=== PATIENT | female | born 1985 | race Caucasian/White ===

== ENCOUNTER 2016-09-04 11:20 | Emergency (ER) | payer MEDICARE, OTHER ==
[2016-09-04 11:20] VITALS: BMI 30.4
[2016-09-04 11:24] VITALS: BP 124/91; PULSE 93; RESP 20; TEMP 97.7; O2SAT 99
[2016-09-04] MEDS ORDERED: Sodium Chloride 0.9% 1,000 ML IV STA (11:50)
--- NOTE | 2016-09-04 11:55 | ED PDOC ---
HPI: Abdomen Time Seen by Provider: 09/04/16 11:35 Chief Complaint (Nursing): Female Genitourinary History Per: Patient History/Exam Limitations: no limitations Onset/Duration Of Symptoms: Days Current Symptoms Are (Timing): Still Present Severity: Moderate Additional Complaint(s): 30-year-old female, presents to the emergency department with complaints of abdominal pain. Patient states she has been experiencing epigastric abdominal pain that radiates to right abdomen, for the past 2.5 months. Pain is intermittent in nature, associated with vaginal bleeding, that is also going on x2.5 months. Patient states her symptoms returned after she had a drink with her friends last night, followed by an episode of non-bilious/non-bloody vomiting after one drink. States she was seen by her OBGYN last week who told her "everything is okay." Patient denies numbness/weakness, back pain, dizziness , chills, or any other associated symptoms. No other complaints at this time. PMD Emmett Locke MD. OBGYN Yang Alanis MD. Past Medical History Reviewed: Historical Data, Nursing Documentation, Vital Signs Vital Signs: Last Vital Signs Temp 97.7 F 09/04/16 11:22 Pulse 93 H 09/04/16 11:22 Resp 20 09/04/16 11:22 BP 124/91 H 09/04/16 11:22 Pulse Ox 99 09/04/16 12:06 - Medical History PMH: Anxiety, Cardia Arrhythmia - Surgical History Surgical History: - Family History Family History: States: Unknown Family Hx - Home Medications Home Medications: Ambulatory Orders Medication Instructions Recorded Vit#96/Ferrous Fum/FA 1 tab PO DAILY 02/13/15 [ Tablet] Ibuprofen [Motrin Tab] 600 mg PO Q4H PRN #0 tab 02/17/15 Ibuprofen [Motrin] 600 mg PO Q6H PRN #10 tab 10/26/15 Naproxen 500 mg PO BID #30 tab 02/08/16 Azithromycin [Zithromax] 250 mg PO DAILY 5 Days 03/26/16 Ibuprofen [Motrin] 600 mg PO TID 7 Days 03/26/16 - Allergies Allergies/Adverse Reactions: Allergies Allergy/AdvReac Type Severity Reaction Status Date / Time Penicillins Allergy RASH Verified 09/04/16 11:21 BEEF Allergy Severe SWELLING Uncoded 02/13/15 08:21 Review of Systems ROS Statement: Except As Marked, All Systems Reviewed And Found Negative Constitutional: Negative for: Fever, Chills Cardiovascular: Negative for: Chest Pain, Palpitations Respiratory: Negative for: Cough, Shortness of Breath Gastrointestinal: Positive for: Vomiting, Abdominal Pain Genitourinary Female: Positive for: Vaginal Bleeding Skin: Negative for: Rash Neurological: Negative for: Weakness, Numbness, Headache, Dizziness Physical Exam - Reviewed Nursing Documentation Reviewed: Yes Vital Signs Reviewed: Yes - Physical Exam Appears: Positive for: Non-toxic, No Acute Distress Head Exam: Positive for: ATRAUMATIC, NORMOCEPHALIC Skin: Positive for: Warm, Dry. Negative for: Rash Eye Exam: Positive for: Normal appearance Neck: Positive for: Painless ROM Cardiovascular/Chest: Positive for: Regular Rate, Rhythm Respiratory: Positive for: Normal Breath Sounds. Negative for: Accessory Muscle Use Gastrointestinal/Abdominal: Positive for: Soft, Tenderness (Epigastric, Mild). Negative for: Guarding, Rebound Extremity: Positive for: Normal ROM Neurologic/Psych: Positive for: Alert, Oriented - Laboratory Results Result Diagrams: 09/04/16 12:16 09/04/16 12:16 Interpretation Of Abn Labs: no acute - ECG ECG: Positive for: Interpreted By Me, Viewed By Me ECG Rhythm: Positive for: Normal QRS, Normal ST Segment, Sinus Rhythm O2 Sat by Pulse Oximetry: 99 Pulse Ox Interpretation: Normal - Progress ED Course And Treament: 1344: Stable. AAOx3. Pain free. Tolerated PO. Fu with pcp. Medical Decision Making Medical Decision Making: Prior Visits: Notes and records from previous visits were reviewed. Patient had abdominal CT scan on 10/26/15 that showed: Bilateral adnexal cysts. No significant or acute findings to account for/ related to the clinical presentation. No significant interval change compared to the prior examination(s). She had a pelvic US on 02/02 that was normal Plan: * EKG * CMP, Lipase * CBC * IVF, Pepcid * Urinalysis * Reassess and Disposition Scribe Attestation: Documented by Jennifer Castellano acting as a scribe for Braxton Chan MD. Provider Attestation: All medical record entries made by the Scribe were at my direction and personally dictated by me. I have reviewed the chart and agree that the record accurately reflects my personal performance of the history, physical exam, medical decision making, and the department course for this patient. I have also personally directed, reviewed, and agree with the discharge instructions and disposition. Disposition - Clinical Impression Clinical Impression: Abdominal pain - Patient ED Disposition Is Patient to be Admitted: No Counseled Patient/Family Regarding: Studies Performed, Diagnosis, Need For Followup - Disposition Referrals: Emmett Locke MD [Primary Care Provider] - 09/06/16 Disposition: Routine/Home Disposition Time: 13:45 Condition: STABLE Additional Instructions: Return if not better in 3 days. Instructions: Abdominal Pain (ED)
--- NOTE | 2016-09-04 12:13 | RAD ---
HISTORY: epigastric pain COMPARISON: 03/26/2016 TECHNIQUE: Chest PA and lateral FINDINGS: LUNGS: No active pulmonary disease. PLEURA: No significant pleural effusion identified. No pneumothorax apparent. CARDIOVASCULAR: Normal. OSSEOUS STRUCTURES: No significant abnormalities. VISUALIZED UPPER ABDOMEN: Normal. OTHER FINDINGS: None. IMPRESSION: No active disease.
[2016-09-04 12:26] LABS: BASO % 0.3 % (0.0-2.0); EOS # 0.1 K/uL (0.0-0.7); EOS % 1.1 % (0.0-4.0); HEMATOCRIT 43.7 % (34.0-47.0); LYMPH # 1.7 K/uL (1.0-4.3); LYMPH % 19.2 % (20.0-40.0); MEAN CELL VOLUME 91.5 fl (81.0-99.0); MEAN CORPUSCULAR HEMOGLOBIN 30.9 pg (27.0-31.0); MEAN CORPUSCULAR HGB CONC 33.7 g/dL (33.0-37.0); MEAN PLATELET VOLUME 10.2 fl (7.2-11.7); MONO # 0.5 K/uL (0.0-0.8); MONO % 5.4 % (0.0-10.0); NEUT # 6.6 K/uL (1.8-7.0); RED CELL DISTRIBUTION WIDTH 14.1 % (11.5-14.5)
[2016-09-04 12:40] LABS: ALB/GLOB RATIO 1.3 (1.0-2.1); ALKALINE PHOSPHATASE 99 U/L (38-126); ALT/SGPT 44 U/L (9-52); AST/SGOT 21 U/L (14-36); BILIRUBIN,TOTAL 0.3 mg/dl (0.2-1.3); BLOOD UREA NITROGEN 9 mg/dl (7-17); CALCIUM 9.4 mg/dL (8.4-10.2); CARBON DIOXIDE 24 mmol/L (22-30); CHLORIDE 106 mmol/L (98-107); GFR AFRICAN-AMERICAN > 60; GLUCOSE,RANDOM 102 mg/dL (65-105); LIPASE 38 U/L (23-300); SODIUM 140 mmol/l (132-148); TOTAL PROTEIN 7.4 G/DL (6.3-8.2)
--- NOTE | 2016-09-06 09:47 | CARD ---
APPROVED REPORT EKG Measurement Heart [id number] <Conclusion> Normal sinus rhythm with sinus arrhythmia Normal ECG
== END 2016-09-04 13:55 | disposition home or self-care (01) ==
LOC: H.ER 11:20
DX: R10.13 Epigastric pain (principal); Z88.0 Allergy status to penicillin; F41.9 Anxiety disorder, unspecified
CPT/HCPCS: 71020; 80053; 81025; 83690; 85025; 93005; 96374; 99285; J2270; J7040

== ENCOUNTER 2016-10-30 16:32 | Emergency (ER) | payer MEDICARE, OTHER ==
[2016-10-30 16:32] VITALS: BMI 30.4
[2016-10-30 16:41] VITALS: O2SAT 100
--- NOTE | 2016-10-30 17:24 | ED PDOC ---
HPI: Chest Pain Time Seen by Provider: 10/30/16 16:45 Chief Complaint (Nursing): Chest Pain Chief Complaint (Provider): Chest Pain History Per: Patient History/Exam Limitations: no limitations Onset/Duration Of Symptoms: Days (4 days) Current Symptoms Are (Timing): Constant Severity: Moderate Quality: Tightness Associated Symptoms: Nausea, Dyspnea, Other (left forearm pain, inclusive of generalized numbness and tingling sensations, vomiting, diarrhea, and a cough; denies a fever or abdominal pain) Exacerbating Factors: Deep Breathing Additional Complaint(s): Snehal Kenny is a 30 year old female, with a past medical history of cardiac arrhythmia, who presents to the emergency department for the evaluation of chest pain, radiating to her left forearm, inclusive of generalized numbness and tingling sensations, that the patient has been experiencing for the past 4 days. Pain is described as a constant tightness, localized to the patient's anterior chest wall. Chest pain is reportedly exacerbated with a deep breath. No medications were taken prior to arrival to help alleviate her pain. Associated nausea, 2 episodes of vomiting (earlier today), diarrhea, shortness of breath, and a dry cough (lasting for approximately the past 2 years) are currently present. Denies a fever or abdominal pain. PMD: Emmett Locke Past Medical History Reviewed: Historical Data, Nursing Documentation, Vital Signs Vital Signs: Last Vital Signs Temp 98.3 F 10/30/16 16:37 Pulse 94 H 10/30/16 18:21 Resp 18 10/30/16 16:37 BP 132/66 10/30/16 16:37 Pulse Ox 100 10/30/16 18:21 - Medical History PMH: Anxiety, Cardia Arrhythmia Other PMH: Colitis - Surgical History Surgical History: (x1) Other surgeries: Tubal Ligation, Colonoscopy - Family History Family History: States: No Known Family Hx - Social History Current smoker - smoking cessation education provided: Yes Alcohol: Occasional Drugs: Denies - Home Medications Home Medications: Ambulatory Orders Medication Instructions Recorded Vit#96/Ferrous Fum/FA 1 tab PO DAILY 02/13/15 [ Tablet] Ibuprofen [Motrin Tab] 600 mg PO Q4H PRN #0 tab 02/17/15 Ibuprofen [Motrin] 600 mg PO Q6H PRN #10 tab 10/26/15 Naproxen 500 mg PO BID #30 tab 02/08/16 Azithromycin [Zithromax] 250 mg PO DAILY 5 Days 03/26/16 Ibuprofen [Motrin] 600 mg PO TID 7 Days 03/26/16 - Allergies Allergies/Adverse Reactions: Allergies Allergy/AdvReac Type Severity Reaction Status Date / Time Penicillins Allergy RASH Verified 09/04/16 11:21 BEEF Allergy Severe SWELLING Uncoded 02/13/15 08:21 Review of Systems ROS Statement: Except As Marked, All Systems Reviewed And Found Negative Constitutional: Negative for: Fever Cardiovascular: Positive for: Chest Pain Respiratory: Positive for: Cough, Shortness of Breath, Pleuritic Pain Gastrointestinal: Positive for: Nausea, Vomiting, Diarrhea. Negative for: Abdominal Pain Musculoskeletal: Positive for: Arm Pain (L) Neurological: Positive for: Numbness (L arm), Other (tingling to L arm) Physical Exam - Reviewed Nursing Documentation Reviewed: Yes Vital Signs Reviewed: Yes - Physical Exam Appears: Positive for: Well, Non-toxic, No Acute Distress Head Exam: Positive for: ATRAUMATIC, NORMOCEPHALIC Skin: Positive for: Normal Color, Warm, Dry Cardiovascular/Chest: Positive for: Regular Rate, Rhythm. Negative for: Chest Non Tender (chest wall tenderness), Murmur Respiratory: Positive for: Normal Breath Sounds. Negative for: Respiratory Distress Gastrointestinal/Abdominal: Positive for: Normal Exam, Soft. Negative for: Tenderness Extremity: Positive for: Normal ROM. Negative for: Tenderness, Swelling Neurologic/Psych: Positive for: Alert, Oriented - Laboratory Results Result Diagrams: 10/30/16 17:33 10/30/16 17:33 - ECG ECG Rhythm: Positive for: Normal QRS, Normal ST Segment, Sinus Rhythm. Negative for: ST/T Changes Rate: 94 O2 Sat by Pulse Oximetry: 100 (RA) Pulse Ox Interpretation: Normal - Radiology X-Ray: Interpreted by Me, Viewed By Me X-Ray Interpretation: No Acute Disease Medical Decision Making Medical Decision Makin:45 Initial Impression: Chest pain and cough Differential Diagnoses include, but are not limited to acute/chronic bronchitis , ACS, otherwise pneumonia. Initial Plan: * Chest X-Ray * EKG * CBC * BMP * Troponin I * Urine * Toradol 30 mg IM * Reevaluation 17:23 EKG read at a rate of 94 with a Normal Sinus Rhythm, Normal QRS, and No ST/T Changes. Scribe Attestation: Documented by Jhonny Martinez, acting as a scribe for Lauro Miller MD. Provider Scribe Attestation: All medical record entries made by the Scribe were at my direction and personally dictated by me. I have reviewed the chart and agree that the record accurately reflects my personal performance of the history, physical exam, medical decision making, and the department course for this patient. I have also personally directed, reviewed, and agree with the discharge instructions and disposition. Disposition - Clinical Impression Clinical Impression: Chest pain - Patient ED Disposition Is Patient to be Admitted: No Doctor Will See Patient In The: Office Counseled Patient/Family Regarding: Studies Performed, Diagnosis, Need For Followup - Disposition Referrals: [facility] [Outside] Disposition: Routine/Home Disposition Time: 18:21 Condition: GOOD Additional Instructions: Return for worsening. Take motrin for pain. Follow up with your PCP in 2-3 days. Instructions: Chest Pain (ED)
[2016-10-30 17:38] LABS: BASO % 0.3 % (0.0-2.0); EOS # 0.1 K/uL (0.0-0.7); EOS % 0.6 % (0.0-4.0); LYMPH # 2.9 K/uL (1.0-4.3); LYMPH % 26.5 % (20.0-40.0); MEAN CELL VOLUME 89.6 fl (81.0-99.0); MEAN CORPUSCULAR HGB CONC 33.5 g/dL (33.0-37.0); MEAN PLATELET VOLUME 10.7 fl (7.2-11.7); MONO # 0.7 K/uL (0.0-0.8); MONO % 6.5 % (0.0-10.0); NEUT # 7.3 K/uL (1.8-7.0); NEUT % 66.1 % (50.0-75.0); RED CELL DISTRIBUTION WIDTH 14.2 % (11.5-14.5); WHITE BLOOD COUNT 11.1 K/uL (4.8-10.8)
[2016-10-30 17:51] LABS: BLOOD UREA NITROGEN 9 mg/dl (7-17); CALCIUM 9.3 mg/dL (8.4-10.2); CARBON DIOXIDE 18 mmol/L (22-30); CHLORIDE 109 mmol/L (98-107); GFR AFRICAN-AMERICAN > 60; GLUCOSE,RANDOM 86 mg/dL (65-105); SODIUM 138 mmol/l (132-148)
[2016-10-30 18:36] VITALS: BP 134/69; PULSE 86; RESP 16; TEMP 98
--- NOTE | 2016-10-31 08:21 | RAD ---
HISTORY: chest pain COMPARISON: No prior. TECHNIQUE: Chest PA and lateral FINDINGS: LUNGS: No active pulmonary disease. PLEURA: No significant pleural effusion identified. No pneumothorax apparent. CARDIOVASCULAR: Normal. OSSEOUS STRUCTURES: No significant abnormalities. VISUALIZED UPPER ABDOMEN: Normal. OTHER FINDINGS: None. IMPRESSION: No active disease.
--- NOTE | 2016-11-01 08:56 | CARD ---
APPROVED REPORT EKG Measurement Heart [id number] <Conclusion> Normal sinus rhythm Normal ECG
== END 2016-10-30 18:36 | disposition home or self-care (01) ==
LOC: H.ER 16:32
DX: R07.9 Chest pain, unspecified (principal); F41.9 Anxiety disorder, unspecified; F17.200 Nicotine dependence, unspecified, uncomplicated; Z88.0 Allergy status to penicillin; R19.7 Diarrhea, unspecified
CPT/HCPCS: 71020; 80048; 81025; 84484; 85025; 93005; 96372; 99282; J1885

== ENCOUNTER 2017-01-24 17:14 | Emergency (ER) | payer MEDICARE, OTHER ==
[2017-01-24 17:14] VITALS: BMI 30.4
[2017-01-24 17:27] VITALS: BP 122/75; PULSE 108; RESP 16; TEMP 98.6; O2SAT 98
[2017-01-24 18:37] LABS: SQUAMOUS EPITHIAL 12 /hpf (0-5); URINE BILIRUBIN NEGATIVE (NEGATIVE); URINE BLOOD LARGE (NEGATIVE); URINE CALCIUM OXALATE CRYSTALS FEW /hpf (<OCC); URINE CLARITY CLOUDY (Clear); URINE COLOR AMBER (YELLOW); URINE GLUCOSE (UA) NEG (Normal); URINE LEUKOCYTE ESTERASE NEG Leu/uL (Negative); URINE NITRATE NEGATIVE (NEGATIVE); URINE PROTEIN 100 mg/dL (NEGATIVE); URINE UROBILINOGEN 0.2-1.0 mg/dL (0.2-1.0)
[2017-01-24] MEDS ORDERED: Sodium Chloride 0.9% 1,000 ML IV STA (19:05)
--- NOTE | 2017-01-24 19:08 | ED PDOC ---
HPI: Abdomen Time Seen by Provider: 01/24/17 17:40 Chief Complaint (Nursing): Abdominal Pain Chief Complaint (Provider): abdominal pain History Per: Patient History/Exam Limitations: no limitations Additional Complaint(s): 31yo F in ED for eval of back pain and pelvic cramping with vaginal bleeding . pt admits vaginal bleeding and pelvic cramping is ongoing. Pt has been seen by Danilo and has been told she has adenexal cysts causing her pelvic cramping and required watchful waiting. Pt now in Ed with severe pain untolerable without nausea vomiting fever or chills. Past Medical History Reviewed: Historical Data, Nursing Documentation, Vital Signs Vital Signs: Last Vital Signs Temp 98.6 F 01/24/17 17:23 Pulse 108 H 01/24/17 17:23 Resp 16 01/24/17 17:23 BP 122/75 01/24/17 17:23 Pulse Ox 98 01/24/17 19:16 - Medical History PMH: Anxiety, Cardia Arrhythmia - Surgical History Surgical History: (x1) - Family History Family History: States: Unknown Family Hx - Home Medications Home Medications: Ambulatory Orders Medication Instructions Recorded Cyclobenzaprine HCl [Flexeril] 10 mg PO TID PRN #15 tab 04/02/14 RX: Vit#96/Ferrous Fum/FA 1 tab PO DAILY 02/13/15 [ Tablet] RX: Ibuprofen [Motrin Tab] 600 mg PO Q4H PRN #0 tab 02/17/15 Ibuprofen [Motrin] 600 mg PO Q6H PRN #10 tab 10/26/15 RX: Naproxen 500 mg PO BID #30 tab 02/08/16 Azithromycin [Zithromax] 250 mg PO DAILY 5 Days 03/26/16 Ibuprofen [Motrin] 600 mg PO TID 7 Days 03/26/16 - Allergies Allergies/Adverse Reactions: Allergies Allergy/AdvReac Type Severity Reaction Status Date / Time Penicillins Allergy RASH Verified 09/04/16 11:21 BEEF Allergy Severe SWELLING Uncoded 02/13/15 08:21 Review of Systems ROS Statement: Except As Marked, All Systems Reviewed And Found Negative Gastrointestinal: Positive for: Abdominal Pain. Negative for: Nausea, Vomiting Genitourinary Female: Positive for: Pelvic Pain Musculoskeletal: Positive for: Back Pain Physical Exam - Reviewed Nursing Documentation Reviewed: Yes Vital Signs Reviewed: Yes - Physical Exam Appears: Positive for: Non-toxic, No Acute Distress, Uncomfortable Head Exam: Positive for: ATRAUMATIC, NORMAL INSPECTION, NORMOCEPHALIC Skin: Positive for: Normal Color, Warm Cardiovascular/Chest: Positive for: Regular Rate, Rhythm Respiratory: Positive for: CNT, Normal Breath Sounds Gastrointestinal/Abdominal: Positive for: Normal Exam, Bowel Sounds, Tenderness (pelvic tenderness b/l) Back: Positive for: R CVA Tenderness (severe) Extremity: Positive for: Normal ROM Neurologic/Psych: Positive for: Alert, Oriented - Laboratory Results Result Diagrams: 01/24/17 19:21 01/24/17 19:21 - ECG O2 Sat by Pulse Oximetry: 98 - Progress ED Course And Treament: ct scan due to hematuira r/o renal stone labs and NS fluids, zofran and tordol. K+ low gave [id number]. Disposition - Clinical Impression Clinical Impression: Abdominal cramps - Patient ED Disposition Is Patient to be Admitted: Transfer of Care - Disposition Disposition Time: 19:58 Condition: STABLE Forms: [employer] (French) Patient Signed Over To: Vane Coles (pending CT scan)
[2017-01-24 19:36] LABS: BASO % 0.2 % (0.0-2.0); EOS # 0.1 K/uL (0.0-0.7); HEMOGLOBIN 12.5 g/dL (12.0-16.0); LYMPH # 2.5 K/uL (1.0-4.3); LYMPH % 29.2 % (20.0-40.0); MEAN CELL VOLUME 89.8 fl (81.0-99.0); MEAN CORPUSCULAR HEMOGLOBIN 29.8 pg (27.0-31.0); MEAN CORPUSCULAR HGB CONC 33.2 g/dL (33.0-37.0); MEAN PLATELET VOLUME 9.9 fl (7.2-11.7); MONO # 0.5 K/uL (0.0-0.8); NEUT # 5.4 K/uL (1.8-7.0); NEUT % 63.6 % (50.0-75.0); RBC 4.17 Mil/uL (3.80-5.20); RED CELL DISTRIBUTION WIDTH 15.5 % (11.5-14.5); WHITE BLOOD COUNT 8.4 K/uL (4.8-10.8)
[2017-01-24 19:41] LABS: BLOOD UREA NITROGEN 11 mg/dl (7-17); CALCIUM 8.6 mg/dL (8.4-10.2); GFR AFRICAN-AMERICAN > 60; GFR NON-AFRICAN AMERICAN > 60
[2017-01-24] MEDS ORDERED: Potassium Chloride 10 mEq ER Tab PO ONE ×2 (19:57→20:03)
--- NOTE | 2017-01-24 20:13 | ED PDOC ---
- Laboratory Results Result Diagrams: 01/24/17 19:21 01/24/17 19:21 - ECG O2 Sat by Pulse Oximetry: 98 - Progress ED Course And Treament: Case endorsed to sba underwriter from [facility]ira ALICIA pending CT EXAM: CT Abdomen and Pelvis Without Intravenous Contrast CLINICAL HISTORY: 31 years old, female; Pain; Abdominal pain; Prior surgery; Surgery date: 6+ months; Surgery type: Tubal ligation. 1 c/section; Additional info: Right CVA tenderness. Back pain, pelvic cramping. Sent phy. Doc TECHNIQUE: Axial computed tomography images of the abdomen and pelvis without intravenous contrast. This CT exam was performed using one or more of the following dose reduction techniques: automated exposure control, adjustment of the mA and/or kV according to patient size, and/ or use of iterative reconstruction technique. Coronal and sagittal reformatted images were created and reviewed. EXAM DATE/TIME: 01/24/2017 7:05 PM COMPARISON: CT - ABD PELVIS PO IV CONTRAST 10/26/2015 5:40:19 PM FINDINGS: Lower thorax: Heart size is normal. Lung bases are clear There is a small hiatal hernia. ABDOMEN: Liver: There is fatty infiltration of the liver. Liver appears mildly enlarged. Gallbladder and bile ducts: unremarkable Pancreas: unremarkable Spleen: Spleen is unremarkable. There is a tiny splenule in the left upper quadrant. Adrenals: unremarkable Kidneys and ureters: There is a left renal cyst. Kidneys and ureters are otherwise unremarkable. There are no renal or ureteral stones. Stomach and bowel: Stomach is partially distended with air-fluid levels. Rotation is normal. There are mildly dilated small bowel loops in the left flank. There are scattered air- fluid levels. Distention decreases distally. Terminal ileum is unremarkable. Appendix is unremarkable.Colon is incompletely distended which limits evaluation. Appendix: See above PELVIS: Bladder: Urinary bladder is unremarkable. Reproductive: Uterus is unremarkable. There is prominence of the adnexa with dominant follicles/cysts. ABDOMEN and PELVIS: Intraperitoneal space: There is no free air or free fluid. Bones/joints: There are no acute osseous abnormalities Soft tissues: unremarkable Vasculature: There are calcified phleboliths. Vascular structures are unremarkable. Lymph nodes: There are multiple small shotty para-aortic nodes. IMPRESSION: No renal or ureteral stones or hydronephrosis; dilated mid small bowel with air-fluid levels, ileus versus early obstruction; prominence of both adnexa with bilateral dominant follicles/cysts Additional findings as described above. Thank you for allowing us to participate in the care of your patient. On re-eval, patient states pain same pain she has been having x 2 years, always on right side. Last BM this morning, tolerating PO. Case discussed with Dr. Osborn, patient's Director Of Psychiatry; recommends doing an u/s and if normal can follow up in office. EXAM: US Pelvis Complete, Transabdominal CLINICAL HISTORY: 31 years old, female; Pain and signs and symptoms; Menstruation abnormalities; Irregular menstruation; Pelvic pain; Additional info: Pelvic pain, vaginal bleeding TECHNIQUE: Real-time transabdominal pelvic ultrasound (complete) with image documentation. EXAM DATE/TIME: 01/24/2017 8:31 PM COMPARISON: CT - ABD PELVIS W/O PO OR 01/24/2017 7:31:30 PM FINDINGS: Uterus: Uterus measures approximately 11 x 5 x 5.5 cm. Endometrium measures approximately 9 mm in width. Right ovary: Right ovary measures approximately 3.2 x 2.1 x 2.9 cm. There is a dominant follicle.There is expected blood flow on Doppler imaging Left ovary: Left ovary measures approximately 3 0.2 x 2.9 x 3 cm. There is a complex dominant follicle/cyst in the left ovary.There is expected blood flow on Doppler imaging Free fluid: There is no free fluid. IMPRESSION: Normal pelvic ultrasound Patient educated on findings, discharged with rx Naproxen. Advised follow up Dr. Osborn. Return to ED for worsening/concerning symptoms. Disposition - Clinical Impression Clinical Impression: Vaginal bleeding, abnormal, Ovarian cyst, Abdominal cramps - POA Present On Arrival: None - Disposition Disposition: Routine/Home Disposition Time: 23:04 Condition: IMPROVED Additional Instructions: Follow up with Director Of Psychiatry in 2-3 days. Take medication as directed, as needed. Return to ED for worsening/concerning symptoms. Prescriptions: Naproxen [Naprosyn] 500 mg PO Q12 PRN #20 tablet PRN Reason: Pain, Moderate (4-7) Instructions: Ovarian Cyst (ED), Dysfunctional Uterine Bleeding (ED)
--- NOTE | 2017-01-24 23:00 | US ---
EXAM: US Pelvis Complete, Transabdominal CLINICAL HISTORY: 31 years old, female; Pain and signs and symptoms; Menstruation abnormalities; Irregular menstruation; Pelvic pain; Additional info: Pelvic pain, vaginal bleeding TECHNIQUE: Real-time transabdominal pelvic ultrasound (complete) with image documentation. EXAM DATE/TIME: 01/24/2017 8:31 PM COMPARISON: CT - ABD PELVIS W/O PO OR 01/24/2017 7:31:30 PM FINDINGS: Uterus: Uterus measures approximately 11 x 5 x 5.5 cm. Endometrium measures approximately 9 mm in width. Right ovary: Right ovary measures approximately 3.2 x 2.1 x 2.9 cm. There is a dominant follicle.There is expected blood flow on Doppler imaging Left ovary: Left ovary measures approximately 3 0.2 x 2.9 x 3 cm. There is a complex dominant follicle/cyst in the left ovary.There is expected blood flow on Doppler imaging Free fluid: There is no free fluid. IMPRESSION: Normal pelvic ultrasound
== END 2017-01-24 23:20 | disposition home or self-care (01) ==
LOC: H.ER 17:14
DX: N83.209 Unspecified ovarian cyst, unspecified side (principal); F41.9 Anxiety disorder, unspecified; Z88.0 Allergy status to penicillin; R10.2 Pelvic and perineal pain
CPT/HCPCS: 74176; 76856; 80048; 81003; 81025; 85025; 96374; 99283; J1885; J7040

== ENCOUNTER 2017-03-04 06:18 | Day surgery (SDC) | payer MEDICARE ==
[2017-03-04 06:50] VITALS: RESP 18
[2017-03-04 07:02] VITALS: BMI 30.4
[2017-03-04] MEDS ORDERED: Propofol 10 mg/ml Inj (20 ML) ONE (07:06)
[2017-03-04] MEDS ORDERED: Phenylephrine 10 mg/ml Inj ONE (07:06)
[2017-03-04] MEDS ORDERED: Lidocaine 2% MPF (5 ml) Inj ONE (07:06)
[2017-03-04] MEDS ORDERED: ePHEDrine 50 mg/ml Inj ONE (07:06)
[2017-03-04] MEDS ORDERED: Succinylcholine 200 mg/10 ml Inj IV ONE (07:06)
[2017-03-04] MEDS ORDERED: Rocuronium 10 mg/ml (5 ml) ONE (07:06)
[2017-03-04] MEDS ORDERED: Sevoflurane - Inhalation Anesthetic Liq (250 ml) ONE (07:15)
[2017-03-04] MEDS ORDERED: Midazolam 2 MG/2 ML VIAL ONE (07:34)
[2017-03-04] MEDS ORDERED: Bupivacaine 0.5% Inj(30mL) ONE (07:35)
[2017-03-04] MEDS ORDERED: Lactated Ringer's 1,000 ML IV ONE ×2 (07:45→08:15)
[2017-03-04] MEDS ORDERED: Lactated Ringer's 500 ML IV ONE (07:45)
[2017-03-04] MEDS ORDERED: Sodium Chloride 0.9% 100 ML IV ONE (08:04)
[2017-03-04] MEDS ORDERED: Dexamethasone 4 mg/1 ml ONE (08:30)
[2017-03-04] MEDS ORDERED: Neostigmine Methylsulfate 3mg/3ml Syringe IV ONE (08:31)
[2017-03-04] MEDS: HYDROmorphone 0.5 mg/0.5 ml ISec IVP PRN ×4 (10:00→10:45)
[2017-03-04] MEDS ORDERED: Oxycodone/Acetaminophen 5/325 mg Tab PO PRN (11:15)
[2017-03-04 12:09] VITALS: O2SAT 98
[2017-03-04] MEDS ORDERED: Oxycodone/Acetaminophen 5/325 mg Tab PO ONE (12:23)
[2017-03-04 13:21] VITALS: BP 131/62; PULSE 85; TEMP 98
--- NOTE | 2017-03-05 20:49 | OP ---
PROCEDURE DATE: 03/04/2017 PREOPERATIVE DIAGNOSIS: Pelvic pain. POSTOPERATIVE DIAGNOSES: Pelvic pain plus massive pelvic adhesions. PROCEDURE: Lysis of pelvic adhesions. DESCRIPTION OF PROCEDURE: With the patient in the lithotomy under general anesthesia, the patient was prepped and draped in the usual sterile manner. Dr. Sylvester and Ibrahima prepared the patient for surgery after which a Fernandez catheter was put into place, we did speculum put into place also and anterior cervix was grasped with single-tooth tenaculum and dilated after which a HUMI uterine manipulator put into place. We then moved to the abdomen where the abdomen was tented and Veress needle introduced inflating the abdomen to about 3 L of CO2. After this, a small incision about 1 cm was made below the umbilicus. Trocar was introduced and sleeve left in the place. We then entered small #5 trocar with 2-3 cm above the umbilicus in the midline. Dr. Sylvester and Ibrahima started the surgery. We are doing the lysis of adhesions as much as possible. We found the uterus to be attached to the anterior abdominal wall with massive adhesions. We used scissors to cut some of the adhesion and used the LigaSure also in helping to remove the adhesion very carefully maintaining hemostasis. After the adhesions were the adhesions were taken down. The pelvic cavity was irrigated until clean. We then put Interceed in the area of dissection to help prevent any further adhesions. After this was done, the instruments were removed from the abdominopelvic cavity. The incisions were closed with 1 Vicryl and Dermabond. We then removed the instruments from the vagina and Fernandez was removed. Estimated blood loss was minimal. The patient tolerated the procedure well and was in satisfactory condition on her way to recovery room. Yang Alanis MD
== END 2017-03-04 13:40 | disposition home or self-care (01) ==
LOC: H.OPSURG 06:18
PROVIDERS: ATTEND Specialist
DX: R10.2 Pelvic and perineal pain (principal); F17.210 Nicotine dependence, cigarettes, uncomplicated; F41.9 Anxiety disorder, unspecified; N73.6 Female pelvic peritoneal adhesions (postinfective)
CPT/HCPCS: 49999; J0330; J1100; J1170; J1885; J2250; J2370; J2405; J2704; J2710; J3010; J7030; J7120

== ENCOUNTER 2017-08-05 12:10 | Emergency (ER) | payer MEDICARE, OTHER ==
[2017-08-05 12:10] VITALS: BMI 30.4
[2017-08-05 12:21] VITALS: BP 106/58
[2017-08-05] MEDS ORDERED: Albuterol 0.083% Inhal Sol (2.5 mg/3 mL) UD INH STA (13:21)
[2017-08-05] MEDS ORDERED: Promethazine/Cod 6.25mg-10mg/5ml Syr UD PO STA (13:21)
[2017-08-05] MEDS ORDERED: Albuterol 0.083% Inhal Sol (2.5 mg/3 mL) UD ONE (13:58)
[2017-08-05] MEDS ORDERED: Promethazine/Cod 6.25mg-10mg/5ml Syr UD ONE (13:59)
[2017-08-05 14:02] LABS: BASO % 0.4 % (0.0-2.0); EOS # 0.1 K/uL (0.0-0.7); EOS % 1.1 % (0.0-4.0); HEMOGLOBIN 13.4 g/dL (12.0-16.0); LYMPH # 1.6 K/uL (1.0-4.3); MEAN CORPUSCULAR HGB CONC 33.6 g/dL (33.0-37.0); MEAN PLATELET VOLUME 10.1 fl (7.2-11.7); MONO # 0.8 K/uL (0.0-0.8); MONO % 12.3 % (0.0-10.0); NEUT % 61.2 % (50.0-75.0); NRBC % 0.1 % (0.0-0.0); RBC 4.62 Mil/uL (3.80-5.20); RED CELL DISTRIBUTION WIDTH 16.5 % (11.5-14.5); WHITE BLOOD COUNT 6.5 K/uL (4.8-10.8)
[2017-08-05 14:06] LABS: MEAN CELL VOLUME 86.3 fl (81.0-99.0)
[2017-08-05 14:13] LABS: BLOOD UREA NITROGEN 11 mg/dl (7-17); CALCIUM 8.5 mg/dL (8.4-10.2); GFR AFRICAN-AMERICAN > 60; GFR NON-AFRICAN AMERICAN > 60
--- NOTE | 2017-08-05 14:48 | ED PDOC ---
HPI: General Adult Time Seen by Provider: 08/05/17 12:20 Chief Complaint (Nursing): GI Problem Chief Complaint (Provider): flu-like symptoms History Per: Patient History/Exam Limitations: no limitations Onset/Duration Of Symptoms: Days (3x), Intermittent Episodes (fever and shortness of breath ) Current Symptoms Are (Timing): Still Present Additional Complaint(s): Snehal Kenny, a 31 year old female presents to the ED complaining of flu with associated symptoms of cough, sore throat, chest pain and difficulty breathing onset three days ago. Reports the chest pain is constant and worse with cough and associated symptoms of body ache, headache, and intermittent fever as well as shortness of breath. Also feels pain on her tongue. She took Ibuprofen once. PMD: Non [facility] Provider Past Medical History Reviewed: Historical Data, Nursing Documentation, Vital Signs Vital Signs: Last Vital Signs Temp 98.9 F 08/05/17 12:17 Pulse 90 08/05/17 14:55 Resp 20 08/05/17 12:17 BP 106/58 L 08/05/17 12:17 Pulse Ox 96 08/05/17 14:55 - Medical History PMH: Anxiety Denies: Anemia, Chronic Kidney Disease - Surgical History Surgical History: (x1) - Family History Family History: States: Unknown Family Hx - Social History Current smoker - smoking cessation education provided: Yes Alcohol: Social Drugs: Denies - Home Medications Home Medications: Ambulatory Orders Medication Instructions Recorded Ibuprofen [Motrin Tab] 800 mg PO Q6 03/04/17 oxyCODONE/Acetaminophen [Percocet 1 tab PO Q6 03/04/17 5/325 mg Tab] Albuterol HFA [Ventolin HFA 90 2 puff IH [id number] #1 inh 08/05/17 mcg/actuation (8 g)] Oseltamivir [Tamiflu] 75 mg PO BID #10 cap 08/05/17 - Allergies Allergies/Adverse Reactions: Allergies Allergy/AdvReac Type Severity Reaction Status Date / Time Penicillins Allergy RASH Verified 03/04/17 07:01 BEEF Allergy Severe SWELLING Uncoded 03/04/17 07:01 Review of Systems ROS Statement: Except As Marked, All Systems Reviewed And Found Negative Constitutional: Positive for: Fever (intermittent), Other (body ache) ENT: Positive for: Mouth Pain (tongue), Throat Pain Cardiovascular: Positive for: Chest Pain (with cough ) Respiratory: Positive for: Cough, Shortness of Breath Neurological: Positive for: Headache Physical Exam - Reviewed Nursing Documentation Reviewed: Yes Vital Signs Reviewed: Yes - Physical Exam Appears: Positive for: Well, Non-toxic, No Acute Distress Head Exam: Positive for: ATRAUMATIC, NORMAL INSPECTION, NORMOCEPHALIC Skin: Positive for: Normal Color, Warm, Dry Eye Exam: Positive for: EOMI, Normal appearance, PERRL ENT: Positive for: Normal ENT Inspection Neck: Positive for: Normal, Painless ROM, Supple. Negative for: Decreased ROM Cardiovascular/Chest: Positive for: Regular Rate, Rhythm. Negative for: Murmur , Bradycardia Respiratory: Positive for: Wheezing (occasional ) Gastrointestinal/Abdominal: Positive for: Normal Exam, Bowel Sounds, Soft. Negative for: Tenderness, Guarding Back: Positive for: Normal Inspection. Negative for: L CVA Tenderness, R CVA Tenderness Extremity: Positive for: Normal ROM. Negative for: Tenderness, Pedal Edema, Deformity Neurologic/Psych: Positive for: Alert, Oriented (x3) - Laboratory Results Result Diagrams: 08/05/17 13:50 08/05/17 13:50 - ECG ECG: Positive for: Interpreted By Me, Viewed By Pr ECG Rhythm: Positive for: Normal QRS, Normal ST Segment, Sinus Rhythm (normal) Rate: 90 O2 Sat by Pulse Oximetry: 96 (RA) Pulse Ox Interpretation: Normal - Radiology X-Ray: Interpreted by Pr, Viewed By Pr X-Ray Interpretation: No Acute Disease Medical Decision Making Medical Decision Making: Time: 13:19 Initial Impression: Chest pain, Upper Respiratory Tract Infection, Wheezing Differential Diagnosis includes but is not limited to: Acute bronchitis, Influenza, pneumonia Initial Plan: --EKG --BMP --Troponin I --CBC --Chest X-ray --Albuterol 2.5mg --Motrin 600mg --Phenergan/ Codeine 5ml --Throat culture --Reevaluation Documented by Maria Luz Eduardo acting as a scribe for Lauro Miller MD. All medical record entries made by the Scribe were at my direction and personally dictated by me. I have reviewed the chart and agree that the record accurately reflects my personal performance of the history, physical exam, medical decision making, and the department course for this patient. I have also personally directed, reviewed, and agree with the discharge instructions and disposition. Disposition - Clinical Impression Clinical Impression: Flu-like symptoms, Bronchitis - Patient ED Disposition Is Patient to be Admitted: No Doctor Will See Patient In The: Office Counseled Patient/Family Regarding: Studies Performed, Diagnosis, Need For Followup - Disposition Referrals: [facility] [Outside] Disposition: Routine/Home Disposition Time: 15:11 Condition: GOOD Additional Instructions: Follow up with your PCP in 2-3 days. Prescriptions: Albuterol HFA [Ventolin HFA 90 mcg/actuation (8 g)] 2 puff IH [id number] #1 inh Oseltamivir [Tamiflu] 75 mg PO BID #10 cap Instructions: Acute Bronchitis, Flu, Adult (DC) Forms: [employer] (Somali)
--- NOTE | 2017-08-05 15:17 | RAD ---
HISTORY: chest pain COMPARISON: Comparison chest 10/30/2016. TECHNIQUE: Chest PA and lateral FINDINGS: LUNGS: No active pulmonary disease. . Suspect minimal biapical pleural thickening. . PLEURA: No significant pleural effusion identified. No pneumothorax apparent. CARDIOVASCULAR: Normal. OSSEOUS STRUCTURES: No significant abnormalities. VISUALIZED UPPER ABDOMEN: Normal. OTHER FINDINGS: None. IMPRESSION: No acute consolidation.
[2017-08-05 15:30] VITALS: PULSE 82; RESP 18; TEMP 97.9; O2SAT 99
--- NOTE | 2017-08-06 10:39 | CARD ---
APPROVED REPORT EKG Measurement Heart [id number] <Conclusion> Normal sinus rhythm Low voltage QRS Borderline ECG
== END 2017-08-05 15:25 | disposition home or self-care (01) ==
LOC: H.ER 12:10
DX: J40 Bronchitis, not specified as acute or chronic (principal); J11.1 Influenza due to unidentified influenza virus with other respiratory manifestations; F17.200 Nicotine dependence, unspecified, uncomplicated

== ENCOUNTER 2017-12-17 12:14 | Emergency (ER) | payer MEDICARE, OTHER ==
[2017-12-17 12:14] VITALS: BMI 30.4
[2017-12-17 12:29] VITALS: BP 110/58; PULSE 88; RESP 16; O2SAT 98
--- NOTE | 2017-12-17 13:17 | RAD ---
PROCEDURE: Right Wrist Radiographs. HISTORY: joint pain COMPARISON: None. FINDINGS: BONES: Old ulnar styloid fracture. JOINTS: Normal. No dislocation. SOFT TISSUES: Normal. OTHER FINDINGS: None. IMPRESSION: Old ulnar styloid fracture.
--- NOTE | 2017-12-17 13:22 | ED PDOC ---
Upper Extremity Pain/Injury Time Seen by Provider: 12/17/17 12:32 Chief Complaint (Nursing): Finger,Hand,&Wrist Chief Complaint (Provider): Wrist Pain History Per: Patient History/Exam Limitations: no limitations Onset/Duration Of Symptoms: Days (x 2) Current Symptoms Are (Timing): Still Present Additional Complaint(s): 32-year-old female presents to ED for evaluation of pain to the right wrist for the past 2 days. Patient states 2 days ago she went to lift a case of water and felt an odd sensation to her wrist. Patient reports last night she developed pain for which she took Ibuprofen 400mg last night with good relief of symptoms. However upon waking up this morning, the pain returned prompting ED visit. No medications for were taken for pain [employer] today. Denies any trauma or falls at this time, no history of wrist injury. Patient reports she is right hand dominant and that she was recently diagnosed with rheumatoid arthritis. No other complaints at this time. LMP November 20. PMD: Aundrea Aburto Past Medical History Reviewed: Historical Data, Nursing Documentation, Vital Signs Vital Signs: Last Vital Signs Temp 98.0 F 12/17/17 12:27 Pulse 88 12/17/17 12:27 Resp 16 12/17/17 12:27 BP 110/58 L 12/17/17 12:27 Pulse Ox 98 12/17/17 12:27 - Medical History PMH: Anxiety, Rheumatoid Arthritis - Surgical History Surgical History: (x1) Other surgeries: Tubal ligation - Family History Family History: States: Unknown Family Hx - Social History Current smoker - smoking cessation education provided: Yes (1 pack a day) Alcohol: None Drugs: Denies - Home Medications Home Medications: Ambulatory Orders Medication Instructions Recorded Ibuprofen [Motrin Tab] 800 mg PO Q6 03/04/17 oxyCODONE/Acetaminophen [Percocet 1 tab PO Q6 03/04/17 5/325 mg Tab] Albuterol HFA [Ventolin HFA 90 2 puff IH [id number] #1 inh 08/05/17 mcg/actuation (8 g)] Oseltamivir [Tamiflu] 75 mg PO BID #10 cap 08/05/17 Promethazine HCl/Codeine 5 ml PO Q6 PRN #100 ml 08/05/17 [Prometh-Codein 6.25-10 mg/5 ml] Acetaminophen [Acetaminophen 8 650 mg PO Q8 #21 tablet.er 12/17/17 Hour] Meloxicam [Mobic] 15 mg PO DAILY #14 tablet 12/17/17 - Allergies Allergies/Adverse Reactions: Allergies Allergy/AdvReac Type Severity Reaction Status Date / Time Penicillins Allergy RASH Verified 12/17/17 12:27 BEEF Allergy Severe SWELLING Uncoded 12/17/17 12:27 Review of Systems ROS Statement: Except As Marked, All Systems Reviewed And Found Negative Musculoskeletal: Positive for: Other (Right Wrist Pain) Physical Exam - Reviewed Nursing Documentation Reviewed: Yes Vital Signs Reviewed: Yes - Physical Exam Appears: Positive for: Well (Resting comfortably), Non-toxic, No Acute Distress Head Exam: Positive for: NORMOCEPHALIC Skin: Positive for: Normal Color, Warm, Dry Eye Exam: Positive for: EOMI, PERRL ENT: Positive for: Other (Mucus membranes moist. Airway patent (-) stridor.) Neck: Positive for: Painless ROM, Supple Cardiovascular/Chest: Positive for: Regular Rate, Rhythm Respiratory: Positive for: Normal Breath Sounds Extremity: Positive for: Tenderness ((+) Diffuse tenderness of the right wrist, (+) small effusion noted), Capillary Refill (less than 2 seconds), Other ( Remainder of extremity, elbow and shoulder: (-) tenderness. Sensation intact throughout.). Negative for: Normal ROM (RIGHT WRIST: (+) Decreased ROM secondary to pain, (-) Erythema, (-) Ecchymosis, (+) Full ROM of all digits), Deformity Neurologic/Psych: Positive for: Alert, Oriented (x3), Gait (steady in ED) - ECG O2 Sat by Pulse Oximetry: 98 (RA) Pulse Ox Interpretation: Normal - Radiology X-Ray Interpretation: No Acute Disease Medical Decision Making Medical Decision Making: Time: 12:38 Impression(s): Acute Wrist Pain/Sprain Plan: - Toradol 30 mg IM - Right Wrist X-Ray - Re-evaluation Right Wrist X-Ray FINDINGS: BONES: Old ulnar styloid fracture. JOINTS: Normal. No dislocation. SOFT TISSUES: Normal. OTHER FINDINGS: None. IMPRESSION: Old ulnar styloid fracture. 1320 On re-evaluation, patient reports improvement of symptoms. On exam, patient remains AAOx3, in no acute distress. On exam, neck is supple, lungs CTA, cardiac RRR, neuro exam shows no focal findings. Cock up splint applied by ED RN. Placement and application verified by Silvia ALICIA. NV intact after placement. Diagnostic results d/w the patient in great detail. Dx of acute wrist pain/ sprain d/w the patient. Based on history, exam and diagnostic results plan will be for discharge and outpatient follow up. Ortho referral provided. Advised to follow up with primary care physician/ortho/rheumatology in 1-2 days without fail. Advised to take medication as prescribed. Return to the emergency room at any time for any new or worsening symptoms. Patient states she fully agrees with and understands discharge instructions. States that she agrees with the plan and disposition. Verbalized and repeated discharge instructions and plan. I have given the patient opportunity to ask any additional questions. Scribe Attestation: Documented by Denny Corona, acting as a scribe for Kori Vega PA-C. Provider Scribe Attestation: All medical record entries made by the Scribe were at my direction and personally dictated by me. I have reviewed the chart and agree that the record accurately reflects my personal performance of the history, physical exam, medical decision making, and the department course for this patient. I have also personally directed, reviewed, and agree with the discharge instructions and disposition. Disposition - Clinical Impression Clinical Impression: Wrist pain, acute, Wrist sprain, Rheumatoid arthritis - Patient ED Disposition Is Patient to be Admitted: No Counseled Patient/Family Regarding: Studies Performed, Diagnosis, Need For Followup, Rx Given - Disposition Referrals: Archana Thacker MD [Staff Provider] - Disposition: Routine/Home Disposition Time: 13:20 Condition: STABLE Additional Instructions: FOLLOW UP WITH PMD/ORTHO/RHEUMATOLOGY IN 1-2 DAYS WITHOUT FAIL. RETURN TO ED WITH ANY NEW OR WORSENING SYMPTOMS. Prescriptions: Acetaminophen [Acetaminophen 8 Hour] 650 mg PO Q8 #21 tablet.er Meloxicam [Mobic] 15 mg PO DAILY #14 tablet Instructions: Rheumatoid Arthritis, Wrist Sprain (DC), Common Wrist Injuries Forms: [employer] (Comoran) Print Language: SYRIAC - POA Present On Arrival: None
[2017-12-17 13:40] VITALS: TEMP 98
== END 2017-12-17 13:40 | disposition home or self-care (01) ==
LOC: H.ER 12:14
DX: S63.501A Unspecified sprain of right wrist, initial encounter (principal); X50.9XXA Other and unspecified overexertion or strenuous movements or postures, initial encounter; Y92.89 Other specified places as the place of occurrence of the external cause; M06.031 Rheumatoid arthritis without rheumatoid factor, right wrist; F41.9 Anxiety disorder, unspecified; Z88.0 Allergy status to penicillin
CPT/HCPCS: 29125; 73110; 96372; 99285; J1885

== ENCOUNTER 2018-01-27 16:45 | Emergency (ER) | payer MEDICARE, OTHER ==
[2018-01-27 16:45] VITALS: BMI 30.4
[2018-01-27 17:44] LABS: BASO # 0.1 K/uL (0.0-0.2); BASO % 0.5 % (0.0-2.0); EOS % 0.2 % (0.0-4.0); LYMPH % 6.1 % (20.0-40.0); MEAN CELL VOLUME 89.2 fl (81.0-99.0); MEAN CORPUSCULAR HEMOGLOBIN 29.5 pg (27.0-31.0); MEAN PLATELET VOLUME 10.4 fl (7.2-11.7); MONO # 0.7 K/uL (0.0-0.8); MONO % 4.3 % (0.0-10.0); NEUT # 14.2 K/uL (1.8-7.0); NEUT % 88.9 % (50.0-75.0); PLATELET COUNT 158 K/uL (130-400); RBC 4.74 Mil/uL (3.80-5.20); RED CELL DISTRIBUTION WIDTH 15.1 % (11.5-14.5)
[2018-01-27 17:54] LABS: ALB/GLOB RATIO 1.4 (1.0-2.1); ALBUMIN 4.3 g/dL (3.5-5.0); ALT/SGPT 34 U/L (9-52); AST/SGOT 17 U/L (14-36); BLOOD UREA NITROGEN 8 mg/dl (7-17); CALCIUM 9.2 mg/dL (8.4-10.2); GFR AFRICAN-AMERICAN > 60; GFR NON-AFRICAN AMERICAN > 60
[2018-01-27] MEDS ORDERED: Sodium Chloride 0.9% 2,000 ML IV STA (18:07)
[2018-01-27] MEDS ORDERED: Alum-Mag Hydrox-Simethicone Susp (30 mL) PO ONE (18:15)
[2018-01-27] MEDS ORDERED: Morphine 4 MG/ML VIAL ONE (19:44)
[2018-01-27] MEDS ORDERED: Iohexol 240 (50 ml) PO ONE (19:45)
--- NOTE | 2018-01-27 19:47 | ED PDOC ---
HPI: Abdomen Time Seen by Provider: 01/27/18 17:15 Chief Complaint (Nursing): GI Problem Chief Complaint (Provider): vomiting/abd pain History Per: Patient (32 y/o female here with epigastric pain associated with vomiting/diarrhea x 2 days. Patient denies any fevers/chills. Patient notes ongoing right foot pain for which she has seen podiatry/rhematology/family practice. Is pending neurology eval and notes pain in foot is severe causing her nausea. Notes multiple episodes of watery diarrhea and few episodes vomiting x 2 days. ) Past Medical History Reviewed: Historical Data, Nursing Documentation, Vital Signs Vital Signs: Last Vital Signs Temp 100 F H 01/27/18 20:01 Pulse 96 H 01/27/18 20:01 Resp 19 01/27/18 20:01 BP 119/61 01/27/18 20:01 Pulse Ox 100 01/27/18 20:01 - Medical History PMH: Anxiety, Asthma, Rheumatoid Arthritis Denies: Anemia, Chronic Kidney Disease - Surgical History Surgical History: (x1) - Family History Family History: States: Unknown Family Hx - Home Medications Home Medications: Ambulatory Orders Medication Instructions Recorded Ibuprofen [Motrin Tab] 800 mg PO Q6 03/04/17 oxyCODONE/Acetaminophen [Percocet 1 tab PO Q6 03/04/17 5/325 mg Tab] Albuterol HFA [Ventolin HFA 90 2 puff IH [id number] #1 inh 08/05/17 mcg/actuation (8 g)] Oseltamivir [Tamiflu] 75 mg PO BID #10 cap 08/05/17 Promethazine HCl/Codeine 5 ml PO Q6 PRN #100 ml 08/05/17 [Prometh-Codein 6.25-10 mg/5 ml] Acetaminophen [Acetaminophen 8 650 mg PO Q8 #21 tablet.er 12/17/17 Hour] Meloxicam [Mobic] 15 mg PO DAILY #14 tablet 12/17/17 - Allergies Allergies/Adverse Reactions: Allergies Allergy/AdvReac Type Severity Reaction Status Date / Time Penicillins Allergy RASH Verified 12/17/17 12:27 BEEF Allergy Severe SWELLING Uncoded 12/17/17 12:27 Review of Systems ROS Statement: Except As Marked, All Systems Reviewed And Found Negative Gastrointestinal: Positive for: Vomiting, Abdominal Pain, Diarrhea Physical Exam - Reviewed Nursing Documentation Reviewed: Yes Vital Signs Reviewed: Yes - Physical Exam Appears: Positive for: Well, Non-toxic, No Acute Distress Head Exam: Positive for: ATRAUMATIC, NORMAL INSPECTION, NORMOCEPHALIC Skin: Positive for: Normal Color, Warm, DRY Eye Exam: Positive for: EOMI, Normal appearance, PERRL ENT: Positive for: Normal ENT Inspection Neck: Positive for: Normal, Painless ROM Cardiovascular/Chest: Positive for: Regular Rate, Rhythm Respiratory: Positive for: CNT, Normal Breath Sounds Gastrointestinal/Abdominal: Positive for: Normal Exam, Soft, Tenderness ( epigastric pain/ruq) Back: Positive for: Normal Inspection Extremity: Positive for: Normal ROM, Other (tender with light touch; no signs of erythema/ warm to touch. 2+ pulse DP) Neurologic/Psych: Positive for: Alert, Oriented - Laboratory Results Result Diagrams: 01/27/18 17:30 01/27/18 17:30 Urine POC: Negative - ECG O2 Sat by Pulse Oximetry: 98 - Progress ED Course And Treament: pepcid 20 mg iv x 1 dose zofran 4 mg iv x 1 dose ns 1 liter wide open x 2 liters patient notes persistent pain. RUQ us: pending maalox 30 ml po lidocaine viscous 5ml po no improvement of symptoms. patient noted with vomiting. morphine 4 mg iv x 1 dose/zofran 4 mg iv x [address] abd/pelvis omnapaque 50 ml po x 1 dose us abdomen: FINDINGS: Liver: Enlarged, 18.0 cm. Fatty infiltration with probable focal sparing along gallbladder fossa. No intrahepatic ductal dilatation. Gallbladder: No gallstones. No wall thickening. No pericholecystic fluid. Positive Lopez's sign. Common bile duct: No dilatation. No stones. Pancreas: Unremarkable as visualized. Right kidney: Normal echogenicity. No significant hydronephrosis. IMPRESSION: 1. Hepatic steatosis. 2. Positive Lopez's sign. Thank you for allowing us to participate in the care of your patient. Dictated and Authenticated by: Kashif Jacobs MD Disposition - Clinical Impression Clinical Impression: Abdominal pain - Patient ED Disposition Is Patient to be Admitted: Transfer of Care - Disposition Disposition: Transfer of Care Disposition Time: 19:49 Condition: FAIR Patient Signed Over To: Omayra Castillo PA-C Handoff Comments: PENDING CT ABD/PELVIS AND RE-EVAL
[2018-01-27] MEDS ORDERED: Iohexol 300 100 ML IJ ONE (19:53)
[2018-01-27] MEDS ORDERED: Sodium Chloride 0.9% 50 ML IV ONE (19:53)
[2018-01-27] MEDS ORDERED: Morphine 4 MG/ML VIAL IVP ONE (20:15)
[2018-01-27] MEDS ORDERED: Iohexol 240 (50 ml) PO STA (20:18)
[2018-01-27] MEDS ORDERED: Iohexol 240 (50 ml) ONE (20:19)
[2018-01-27 21:02] LABS: BANDS 2 % (0-2); EOSINOPHIL 1 % (0-7); LYMPHOCYTE 9 % (20-50); MONOCYTE 5 % (0-10); NEUTROPHIL 83 % (42-75); TOTAL CELLS COUNTED 100
[2018-01-27 21:03] LABS: HYPERSEGMENTATION PRESENT; HYPOCHROMIC SLIGHT; PLATELET ESTIMATE NORMAL (NORMAL)
--- NOTE | 2018-01-27 22:00 | ED PDOC ---
- Laboratory Results Result Diagrams: 01/27/18 17:30 01/27/18 17:30 Urine POC: Negative - ECG O2 Sat by Pulse Oximetry: 98 Medical Decision Making Medical Decision Making: Case endorsed to me from MAGDIEL Herring at [address] 2200 On re-evaluation, patient is stating that she has pain. Reports no nausea. Patient went to CT, results still pending. Given toradol IV CT A/P : FINDINGS: Lung bases: No acute findings. ABDOMEN: Liver: Fatty infiltration. Gallbladder and bile ducts: No calcified stones. No ductal dilation. Pancreas: No ductal dilation. No mass. Spleen: No splenomegaly. Adrenals: No mass. Kidneys and ureters: Too small to characterize lesion within LEFT kidney. No significant hydronephrosis. Stomach and bowel: Apparent mild mural/fold thickening of few proximal loops of small bowel. No associated inflammatory stranding. Segmental areas of probable underdistention of colon. Few minimally distended loops of small bowel, likely ileus. PELVIS: Appendix: Normal caliber. No inflammation. Bladder: Unremarkable. Reproductive: 1.8 x 1.5 x 1.4 cm peripherally enhancing hypodensity with crenulated margins within LEFT ovary. 2.3 x 2.5 x 2.4 cm septated hypodense lesion within RIGHT ovary. ABDOMEN and PELVIS: Intraperitoneal space: Trace free fluid within pelvis. No free air. Bones/joints: No acute fracture. Soft tissues: Unremarkable. Vasculature: Unremarkable. No aneurysm. Lymph nodes: No pathologically enlarged lymph nodes. IMPRESSION: 1. Probable involuting or ruptured LEFT corpus luteum/cyst. 2. Probable RIGHT ovarian cyst. Consider ultrasound. 3. Possible mild enteritis. Clinical correlation is needed. 4. Incidental/non-acute findings are described above. Dictated and Authenticated by: Kashif Jacobs MD 01/27/2018 9:29 PM Eastern Time ([place] & [place]) On re-evaluation, patient reports improvement of symptoms, denies any abdominal pain, N/V/D. On exam, patient remains AAOx3, in no acute distress. Abdomen soft , non-tender, repeat neuro exam shows no focal findings. Given bentyl. Diagnostic results d/w the patient in great detail. Diagnosis of gastroenteritis and ruptured ovarian cyst d/w the patient. Based on history, exam and diagnostic results, plan will be for outpatient follow up. Patient instructed to follow-up with pmd and contract administration manager in 1-2 days without fail. Advised to take medication as prescribed. Return to the emergency room at any time for any new or worsening symptoms. Patient states she fully agrees with and understands discharge instructions. States that she agrees with the plan and disposition. Verbalized and repeated discharge instructions and plan. I have given the patient opportunity to ask any additional questions. Disposition Counseled Patient/Family Regarding: Studies Performed, Diagnosis, Need For Followup, Rx Given - Clinical Impression Clinical Impression: Abdominal pain, Gastroenteritis, Ruptured ovarian cyst - POA Present On Arrival: None - Disposition Disposition: Routine/Home Disposition Time: 23:15 Condition: STABLE Additional Instructions: Thank you for letting us take care of you today. You were treated for abdominal pain, gastroenteritis, ruptured L ovarian cyst. The emergency medical care you received today was directed towards the acute presenting symptoms. If you were prescribed any medication, please fill it and give as directed. It may take several days for your symptoms to resolve. Return to the Emergency Department at any time if symptoms worsen, do not improve, or if any other problems arise. Please contact your primary care doctor and your contract administration manager in 2 days for re- evaluation and follow up. Bring any paperwork you were given at discharge with you along with any medications to your follow up visit. Our treatment cannot replace ongoing medical care by a primary care provider (PCP) outside of the emergency department. Thank you for allowing the [facility] team to be part of your care today. Prescriptions: Dicyclomine [Bentyl] 20 mg PO QID PRN #20 tab PRN Reason: Other Naproxen 500 mg PO BID PRN #20 tablet PRN Reason: Pain, Moderate (4-7) Ondansetron ODT [Zofran ODT] 4 mg PO DAILY PRN #20 odt PRN Reason: Nausea/Vomiting Instructions: Ovarian Cysts, Viral Gastroenteritis, Acute Abdomen (Belly Pain) Forms: [employer] (Albanian), [facility] ED School/Work Excuse - PA / FAMILY SUPPORT WORKER / Resident Statement / has reviewed & agrees with the documentation as recorded.
[2018-01-28 00:10] VITALS: BP 116/59; PULSE 86; RESP 17; TEMP 98.9
[2018-01-28 02:56] VITALS: O2SAT 98
--- NOTE | 2018-01-28 08:49 | US ---
Date of service: 01/27/2018 HISTORY: R/O GALLSTONES COMPARISON: Correlations made to CT scan of the abdomen and pelvis dated 01/24/2017. TECHNIQUE: Sonographic evaluation of the right upper quadrant of the abdomen. FINDINGS: LIVER: Enlarged, measuring 18.0 cm in length. Increased echogenicity of the liver parenchyma. No mass. No intrahepatic bile duct dilatation. GALLBLADDER: Unremarkable. No gallstones. Sonographic Lopez's sign was elicited. COMMON BILE DUCT: Measures 5 mm. No stones. No dilatation. PANCREAS: Limited evaluation due to overlying bowel gas. RIGHT KIDNEY: Measures 11.4 x 7.4 x 5.0 cm in length. Normal echogenicity. No calculus, mass, or hydronephrosis. AORTA: No aneurysmal dilatation. IVC: Unremarkable. OTHER FINDINGS: None . IMPRESSION: Hepatomegaly with steatosis. No evidence of cholelithiasis. Nonspecific elicitation of sonographic Lopez's sign.
--- NOTE | 2018-01-28 09:12 | CT ---
Date of service: 01/27/2018 PROCEDURE: CT Abdomen and Pelvis with contrast HISTORY: abd pain COMPARISON: CT scan of the abdomen pelvis dated dated 01/24/2017. TECHNIQUE: Contrast dose: 90 mL Omnipaque 300 Radiation dose: Total exam DLP = 789.4 mGy-cm. This CT exam was performed using one or more of the following dose reduction techniques: Automated exposure control, adjustment of the mA and/or kV according to patient size, and/or use of iterative reconstruction technique. FINDINGS: LOWER THORAX: Unremarkable. LIVER: Hepatic steatosis. No gross lesion or ductal dilatation. GALLBLADDER AND BILE DUCTS: Unremarkable. PANCREAS: Unremarkable. No gross lesion or ductal dilatation. SPLEEN: Unremarkable. ADRENALS: Unremarkable. No mass. KIDNEYS AND URETERS: 8 mm left upper pole cyst. No hydronephrosis. No solid mass. VASCULATURE: Unremarkable. No aortic aneurysm. BOWEL: Unremarkable. No obstruction. No gross mural thickening. APPENDIX: Normal appendix. PERITONEUM: Unremarkable. No free fluid. No free air. LYMPH NODES: Unremarkable. No enlarged lymph nodes. BLADDER: Unremarkable. REPRODUCTIVE: 1.9 cm involuting left corpus luteal follicle. BONES: No acute fracture. OTHER FINDINGS: None. IMPRESSION: Involuting left corpus luteal follicle. Otherwise, no significant finding.
== END 2018-01-27 23:30 | disposition home or self-care (01) ==
LOC: H.ER 16:45
DX: K52.9 Noninfective gastroenteritis and colitis, unspecified (principal); N83.299 Other ovarian cyst, unspecified side; Z88.0 Allergy status to penicillin; M06.9 Rheumatoid arthritis, unspecified; F41.9 Anxiety disorder, unspecified
CPT/HCPCS: 74177; 76705; 80053; 81025; 83690; 83735; 84443; 85025; 96374; 96375; 96376; 99285; J1885; J2270; J2405; J7030; Q9966; Q9967

== ENCOUNTER 2018-04-26 10:03 | Emergency (ER) | payer MEDICARE, OTHER ==
[2018-04-26 10:07] VITALS: BMI 30.9
[2018-04-26] MEDS ORDERED: Sodium Chloride 0.9% 1,000 ML IV STA (10:54)
--- NOTE | 2018-04-26 12:07 | ED PDOC ---
HPI: Abdomen Time Seen by Provider: 04/26/18 10:49 Chief Complaint (Nursing): Abdominal Pain Chief Complaint (Provider): Abdominal Pain History Per: Patient History/Exam Limitations: no limitations Onset/Duration Of Symptoms: Hrs Current Symptoms Are (Timing): Still Present Associated Symptoms: Vomiting Additional Complaint(s): Snehal Palacios is a 32 year old female with a past medical history of asthma, diabetes, and anxiety who is presenting to the ED for evaluation of severe epigastric pain and vomiting onset last night at 11 pm. Patient states that she thinks it might be food poisoning as she continued to vomit throughout the night. She states that now she feels dehydrated and is getting a migraine. Patient denies any blood or bile in the vomitus and states that she is continue to wretch but nothing is coming out as she has been unable to keep down any food or liquids. She is unsure what she couldve ate to cause these symptoms and denies any sick contacts. Of note, patient is allergic to penicillin. PMD: none provided Past Medical History Reviewed: Historical Data, Nursing Documentation, Vital Signs Vital Signs: Last Vital Signs Temp 98.6 F 04/26/18 10:07 Pulse 83 04/26/18 10:07 Resp 20 04/26/18 10:07 BP 124/72 04/26/18 10:07 Pulse Ox 97 04/26/18 10:07 - Medical History PMH: Anxiety, Asthma, Diabetes, Rheumatoid Arthritis Denies: Anemia, Chronic Kidney Disease - Surgical History Surgical History: (x1) Other surgeries: Tubal Ligation - Family History Family History: States: Unknown Family Hx - Social History Current smoker - smoking cessation education provided: Yes Alcohol: Social Drugs: Denies - Home Medications Home Medications: Ambulatory Orders Medication Instructions Recorded Ibuprofen [Motrin Tab] 800 mg PO Q6 03/04/17 oxyCODONE/Acetaminophen [Percocet 1 tab PO Q6 03/04/17 5/325 mg Tab] Albuterol HFA [Ventolin HFA 90 2 puff IH [id number] #1 inh 08/05/17 mcg/actuation (8 g)] Oseltamivir [Tamiflu] 75 mg PO BID #10 cap 08/05/17 Promethazine HCl/Codeine 5 ml PO Q6 PRN #100 ml 08/05/17 [Prometh-Codein 6.25-10 mg/5 ml] Acetaminophen [Acetaminophen 8 650 mg PO Q8 #21 tablet.er 12/17/17 Hour] Meloxicam [Mobic] 15 mg PO DAILY #14 tablet 12/17/17 Dicyclomine [Bentyl] 20 mg PO QID PRN #20 tab 01/27/18 Naproxen 500 mg PO BID PRN #20 tablet 01/27/18 Ondansetron ODT [Zofran ODT] 4 mg PO DAILY PRN #20 odt 01/27/18 - Allergies Allergies/Adverse Reactions: Allergies Allergy/AdvReac Type Severity Reaction Status Date / Time Penicillins Allergy RASH Verified 12/17/17 12:27 BEEF Allergy Severe SWELLING Uncoded 12/17/17 12:27 Review of Systems ROS Statement: Except As Marked, All Systems Reviewed And Found Negative Gastrointestinal: Positive for: Vomiting Neurological: Positive for: Headache Physical Exam - Reviewed Nursing Documentation Reviewed: Yes Vital Signs Reviewed: Yes - Physical Exam Appears: Positive for: Non-toxic, No Acute Distress ( seen lying on her side position crying ) Head Exam: Positive for: ATRAUMATIC, NORMAL INSPECTION, NORMOCEPHALIC Skin: Positive for: Normal Color, Warm, DRY Eye Exam: Positive for: EOMI, Normal appearance, PERRL ENT: Positive for: Normal ENT Inspection Neck: Positive for: Normal, Painless ROM Cardiovascular/Chest: Positive for: Regular Rate, Rhythm. Negative for: Murmur Respiratory: Positive for: Normal Breath Sounds. Negative for: Respiratory Distress Gastrointestinal/Abdominal: Positive for: Bowel Sounds, Tenderness (right upper quadrant and suprapubic tenderness). Negative for: Mass, Guarding, Rebound Back: Positive for: Normal Inspection. Negative for: L CVA Tenderness, R CVA Tenderness, Vertebral Tenderness Extremity: Positive for: Normal ROM. Negative for: Deformity, Swelling Neurologic/Psych: Positive for: Alert, Oriented. Negative for: Motor/Sensory Deficits - Laboratory Results Result Diagrams: 04/26/18 12:00 - ECG O2 Sat by Pulse Oximetry: 97 (RA) Pulse Ox Interpretation: Normal Medical Decision Making Medical Decision Making: Time: 10:54 A/P: workup for gastroenteritis vs. other abdominal pathology --Toradol, Zofran, iv fluids --Will consider imaging if pain continues or abnormality present in lab work Scribe Attestation: Documented by Maria R Carrillo, acting as a scribe for oKri Lynn MD. Provider Scribe Attestation: All medical record entries made by the Scribe were at my direction and personally dictated by me. I have reviewed the chart and agree that the record accurately reflects my personal performance of the history, physical exam, medical decision making, and the department course for this patient. I have also personally directed, reviewed, and agree with the discharge instructions and disposition. 12:25 Pain not improved with Zofran and toradol. Pt to get Reglan and MOrphine. Pt will get CT scan of abd and pelvis. 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 Pt advised to stay but says she will return if symptoms not improving. Pt agrees to sign out against medical advice. PT understands that her lab results have not returned and that it is recommended that she get a cat scan. Disposition - Clinical Impression Clinical Impression: Abdominal discomfort, Abdominal pain during - Disposition Disposition: Against Medical Advice Disposition Time: 12:53 Condition: STABLE Additional Instructions: If symptoms are resolved or improved, follow up with primary medical doctor in one week. If symptoms continue or worsen, return to the emergency department for further workup and treatment. Instructions: Acute Abdomen (Belly Pain), Nausea and Vomiting, Adult (DC) Forms: [employer] (Turkish) Print Language: [place]
[2018-04-26] MEDS ORDERED: Iohexol 240 (50 ml) PO STA (12:21)
[2018-04-26] MEDS ORDERED: Iohexol 240 (50 ml) ONE (12:33)
[2018-04-26 12:42] LABS: BASO % 0.5 % (0.0-2.0); EOS # 0.1 K/uL (0.0-0.7); EOS % 1.1 % (0.0-4.0); HEMOGLOBIN 13.7 g/dL (12.0-16.0); LYMPH # 2.2 K/uL (1.0-4.3); LYMPH % 30.9 % (20.0-40.0); MEAN CELL VOLUME 90.6 fl (81.0-99.0); MEAN CORPUSCULAR HEMOGLOBIN 29.3 pg (27.0-31.0); MEAN CORPUSCULAR HGB CONC 32.3 g/dL (33.0-37.0); MEAN PLATELET VOLUME 10.6 fl (7.2-11.7); MONO # 0.5 K/uL (0.0-0.8); MONO % 7.1 % (0.0-10.0); NEUT # 4.3 K/uL (1.8-7.0); NEUT % 60.4 % (50.0-75.0); NRBC % 0.1 % (0.0-0.0); RBC 4.67 Mil/uL (3.80-5.20); RED CELL DISTRIBUTION WIDTH 15.8 % (11.5-14.5); WHITE BLOOD COUNT 7.2 K/uL (4.8-10.8)
[2018-04-26 12:48] LABS: SQUAMOUS EPITHIAL 3 /hpf (0-5); URINE BACTERIA RARE (<OCC); URINE BILIRUBIN NEGATIVE (NEGATIVE); URINE BLOOD NEGATIVE (NEGATIVE); URINE CLARITY SLIGHTY-CLOUDY (Clear); URINE COLOR YELLOW (YELLOW); URINE GLUCOSE (UA) NEG (Normal); URINE LEUKOCYTE ESTERASE NEG Leu/uL (Negative); URINE PROTEIN 30 mg/dL (NEGATIVE); URINE UROBILINOGEN 0.2-1.0 mg/dL (0.2-1.0)
[2018-04-26 12:51] LABS: INR 1.1; PROTHROMBIN TIME 12.7 Seconds (9.8-13.1)
[2018-04-26 12:54] LABS: PARTIAL THROMBOPLASTIN TIME 26.4 Seconds (25.6-37.1)
[2018-04-26 12:58] LABS: BLOOD UREA NITROGEN 10 mg/dl (7-17); CALCIUM 9.4 mg/dL (8.4-10.2); GFR NON-AFRICAN AMERICAN > 60; LIPASE 27 U/L (23-300)
[2018-04-26 12:59] LABS: ALB/GLOB RATIO 1.2 (1.0-2.1); ALBUMIN 4.2 g/dL (3.5-5.0); ALT/SGPT 40 U/L (9-52); AST/SGOT 36 U/L (14-36)
[2018-04-26 13:03] VITALS: BP 128/78; PULSE 78; RESP 19; TEMP 97.7; O2SAT 98
--- NOTE | 2018-04-26 13:05 | RAD ---
Date of service: 04/26/2018 HISTORY: possible admission COMPARISON: Comparison chest 08/05/2017 FINDINGS: LUNGS: No active pulmonary disease. PLEURA: No significant pleural effusion identified, no pneumothorax apparent. CARDIOVASCULAR: No aortic atherosclerotic calcification present. Normal cardiac size. No pulmonary vascular congestion. OSSEOUS STRUCTURES: No significant abnormalities. VISUALIZED UPPER ABDOMEN: Normal. OTHER FINDINGS: None. IMPRESSION: No active disease.
--- NOTE | 2018-04-26 20:32 | CARD ---
APPROVED REPORT Date of service: 04/26/2018 EKG Measurement Heart [id number] <Conclusion> Unusual P axis, possible ectopic atrial rhythm Abnormal ECG
== END 2018-04-26 13:03 | disposition left against medical advice (07) ==
LOC: H.ER 10:03
DX: O26.91 Pregnancy related conditions, unspecified, first trimester (principal); R10.2 Pelvic and perineal pain
CPT/HCPCS: 71045; 80053; 81003; 81025; 83690; 85025; 85610; 85730; 93005; 96374; 96375; 99283; J1885; J2270; J2405; J2765; J7030; Q9966

== ENCOUNTER 2018-05-31 08:53 | Emergency (ER) | payer MEDICAID, MEDICARE ==
[2018-05-31 08:53] VITALS: BMI 30.9
[2018-05-31 09:00] VITALS: TEMP 98.3; O2SAT 98
--- NOTE | 2018-05-31 09:50 | ED PDOC ---
HPI: Eye Injury/Pain Time Seen by Provider: 05/31/18 09:20 Chief Complaint (Nursing): Eye Problem Chief Complaint (Provider): [place] hue to eyes and sinus congestion History Per: Patient History/Exam Limitations: no limitations Onset/Duration Of Symptoms: Days Additional Complaint(s): Pt. with pink coloring to her eyes with burning/itching. Also with nasal congestion, pain to the sinuses b/l. Also cough, green phlegm. 4 days for the eyes and sinuses. The cough and phlegm for a long time. No dyspnea, weakness, chest pain, fever, headaches, dizziness, sore throat. No neck pain. Past Medical History Reviewed: Nursing Documentation, Vital Signs Vital Signs: Last Vital Signs Temp 98.3 F 05/31/18 09:00 Pulse 83 05/31/18 09:00 Resp 18 05/31/18 09:00 BP 115/71 05/31/18 09:00 Pulse Ox 98 05/31/18 09:00 - Medical History PMH: Anxiety, Asthma Denies: Anemia, Chronic Kidney Disease - Surgical History Surgical History: (x1) - Family History Family History: States: Unknown Family Hx - Living Arrangements Living Arrangements: With Family - Social History Current smoker - smoking cessation education provided: No - Home Medications Home Medications: Ambulatory Orders Medication Instructions Recorded Ibuprofen [Motrin Tab] 800 mg PO Q6 03/04/17 oxyCODONE/Acetaminophen [Percocet 1 tab PO Q6 03/04/17 5/325 mg Tab] Albuterol HFA [Ventolin HFA 90 2 puff IH [id number] #1 inh 08/05/17 mcg/actuation (8 g)] Oseltamivir Cap [Tamiflu] 75 mg PO BID #10 cap 08/05/17 Promethazine HCl/Codeine 5 ml PO Q6 PRN #100 ml 08/05/17 [Prometh-Codein 6.25-10 mg/5 ml] Acetaminophen [Acetaminophen 8 650 mg PO Q8 #21 tablet.er 12/17/17 Hour] Meloxicam [Mobic] 15 mg PO DAILY #14 tablet 12/17/17 Dicyclomine [Bentyl] 20 mg PO QID PRN #20 tab 01/27/18 Naproxen 500 mg PO BID PRN #20 tablet 01/27/18 Ondansetron ODT [Zofran ODT] 4 mg PO DAILY PRN #20 odt 01/27/18 Doxycycline Hyclate 100 mg PO BID 7 Days capsule 05/31/18 Ibuprofen [Motrin] 600 mg PO TID 7 Days tab 05/31/18 Polymyxin/Trimethoprim Sulfate 2 drop BOTHEYES Q6H 7 Days bottle 05/31/18 [Polytrim Ophth Soln] - Allergies Allergies/Adverse Reactions: Allergies Allergy/AdvReac Type Severity Reaction Status Date / Time Penicillins Allergy RASH Verified 12/17/17 12:27 BEEF Allergy Severe SWELLING Uncoded 12/17/17 12:27 Review of Systems Constitutional: Negative for: Fever, Chills, Weakness ENT: Positive for: Nose Pain, Nose Discharge, Nose Congestion Cardiovascular: Negative for: Chest Pain Respiratory: Positive for: Cough, Sputum. Negative for: Shortness of Breath Gastrointestinal: Negative for: Nausea, Vomiting, Abdominal Pain, Diarrhea Musculoskeletal: Negative for: Neck Pain Skin: Negative for: Rash Neurological: Negative for: Weakness Physical Exam - Reviewed Nursing Documentation Reviewed: Yes Vital Signs Reviewed: Yes - Physical Exam Appears: Positive for: Non-toxic, No Acute Distress Head Exam: Positive for: ATRAUMATIC, NORMAL INSPECTION, NORMOCEPHALIC Skin: Positive for: Normal Color, Warm, DRY Eye Exam: Positive for: EOMI, PERRL, Other (pink hue b/l eye conjunctiva; no swelling of the eye lids; no dc; ). Negative for: Periorbital swelling ENT: Positive for: Nasal Congestion, Other (tenderness to b/l maxillary sinus; ) Neck: Positive for: Normal, Painless ROM, Supple Cardiovascular/Chest: Positive for: Regular Rate, Rhythm Respiratory: Positive for: Normal Breath Sounds Neurologic/Psych: Positive for: Alert, Oriented - ECG O2 Sat by Pulse Oximetry: 98 Pulse Ox Interpretation: Normal - Progress ED Course And Treament: 957: Stable. AAOx3. Pain free. Tolerated PO. FU with pcp. Likely sinus infection and possible conjunctivitis. Child had pink eyes yesterday. Disposition - Clinical Impression Clinical Impression: Conjunctivitis, Sinusitis - Patient ED Disposition Is Patient to be Admitted: Yes Counseled Patient/Family Regarding: Diagnosis, Need For Followup, Rx Given - Disposition Referrals: [facility] [Outside] - 06/01/18 Disposition: Routine/Home Disposition Time: 10:09 Condition: STABLE Additional Instructions: Return if not better in 3 days. Prescriptions: Doxycycline Hyclate 100 mg PO BID 7 Days capsule Ibuprofen [Motrin] 600 mg PO TID 7 Days tab Polymyxin/Trimethoprim Sulfate [Polytrim Ophth Soln] 2 drop BOTHEYES Q6H 7 Days bottle Instructions: Conjunctivitis ([place]), Sinusitis in Adults Forms: [facility] (Chinese), [facility] ED School/Work Excuse
[2018-05-31 11:28] VITALS: BP 126/78; PULSE 78; RESP 19
== END 2018-05-31 11:29 | disposition home or self-care (01) ==
LOC: H.ER 08:53
DX: J32.9 Chronic sinusitis, unspecified (principal); H10.9 Unspecified conjunctivitis; Z88.0 Allergy status to penicillin
CPT/HCPCS: 96372; 99283; J1885